=== PATIENT | male | born 1970 | race Two or more races ===

== ENCOUNTER → 2025-08-04 | Outpatient (CLI) | payer MEDICAID, SELFPAY ==
--- NOTE | 2025-08-04 09:00 | XR_ITS ---
EXAM: Single contrast esophagram. INDICATION: Dysphagia. DATE: 08/04/2025, 9:08 a.m. Fluoroscopy time: 2.4 minutes Dose: 131.83 mGy PROCEDURE: Single contrast barium esophagram performed in multiple positions and multiple projections. Liquid barium contrast passes normally from the oropharynx through the esophagus into the stomach without evidence of delay. No evidence of esophageal mass, stricture, filling defect or diverticulum. No evidence of hiatal hernia or gastroesophageal reflux. IMPRESSION: Negative single contrast barium esophagram.
== END | disposition home or self-care (01) ==
PROVIDERS: PCP Family Medicine; Referring Provider Family Medicine; Visit Provider Family Medicine
DX: K21.9 Gastro-esophageal reflux disease without esophagitis (principal)
CPT/HCPCS: 74220; A4649

== ENCOUNTER 2025-08-10 06:35 | Day surgery (SDC) | payer MEDICAID, SELFPAY ==
[2025-08-09 10:56] VITALS: BMI 26.6
[2025-08-10] VITALS (9 sets, daily range): BP systolic 134–151; BP diastolic 76–88; PULSE 60–85; RESP 12–20; TEMP 36.4–36.8; O2SAT 95–100; BMI 26.3
[2025-08-10] MEDS: SODIUM CHLORIDE 0.9% 500 ML 500 ML 100 ML IV (07:41)
[2025-08-10] MEDS: MIDAZOLAM INJ 1 MG/ML VIAL 2 ML (ASD USE ONLY) 2 MG IVP (07:45)
[2025-08-10] MEDS: fentaNYL CIT INJ 50 mCg/ML AMP 2ML (ASD USE ONLY) IVP (07:45)
== END 2025-08-10 08:34 | disposition home or self-care (01) ==
PROVIDERS: PCP Family Medicine; Referring Provider Surgery; Visit Provider Surgery
PROC: 0DBE8ZX Excision of Large Intestine, Via Natural or Artificial Opening Endoscopic, Diagnostic (ICD-10-PCS; CPT 45380; principal; 2025-08-10 07:30)
DX: K64.1 Second degree hemorrhoids (principal); R10.32 Left lower quadrant pain; K40.90 Unilateral inguinal hernia, without obstruction or gangrene, not specified as recurrent
CPT/HCPCS: 45378; A4217; A4649; J1200; J2250; J3010; J7999

== ENCOUNTER 2025-09-21 06:25 | Day surgery (SDC) | payer MEDICAID, SELFPAY ==
--- NOTE | 2025-09-19 07:00 | EKG_ITS ---
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
[2025-09-19 07:36] VITALS: BMI 27.0
[2025-09-19 08:54] LABS: Basophils # (Auto) 0.0 Thou/mm3 (0.0-0.2); Basophils % (Auto) 1 % (0-2.5); Eosinophils # (Auto) 0.2 Thou/mm3 (0.0-0.5); Eosinophils % (Auto) 4 % (0-10); Hematocrit 44.6 % (41.0-53.0); Hemoglobin 15.5 g/dL (13.5-16.0); Immature Granulocytes Auto 0.01 Thou/mm3 (0.00-0.00); Lymphocytes # (Auto) 2.5 Thou/mm3 (1.0-4.8); Lymphocytes % (Auto) 39 % (10-50); Mean Corpuscular HGB Conc 34.8 g/dl (31.0-37.0); Mean Corpuscular Hemoglobin 31.5 pg (25.0-35.0); Mean Corpuscular Volume 91 fL (80-100); Monocytes # (Auto) 0.6 Thou/mm3 (0.0-0.8); Monocytes % (Auto) 9 % (0-12); Neutrophils # (Auto) 3.0 Thou/mm3 (1.8-7.7); Neutrophils % (Auto) 48 % (37-80); Nucleated Red Blood Cell # 0.00 Thou/mm3 (0.00-0.00); Nucleated Red Blood Cell % 0 /100 WBC (0); Platelet Count 231 Thou/mm3 (140-440); RDW Standard Deviation 40.2 fL (35.1-43.9); Red Blood Count 4.92 Miln/mm3 (4.50-5.90); White Blood Count 6.3 Thou/mm3 (3.8-10.6)
[2025-09-19 08:59] LABS: Anion Gap 8 (7-16); BUN/Creatinine Ratio 11 Ratio (12-20); Blood Urea Nitrogen 10 mg/dL (9-23); Calcium 9.3 mg/dL (8.3-10.6); Carbon Dioxide 29.9 mMol/L (20.0-31.0); Chloride 106 mMol/L (98-107); Creatinine (Component) 0.9 mg/dL (0.6-1.3); Estimated Creatinine Clearance 88.7 mL/min (>60); Glucose 93 mg/dL (74-106); Osmolality,Calculated 285 (275-295); Potassium 4.1 mMol/L (3.4-5.1); Sodium 144 mMol/L (136-145); eGFR > 60 See Note
[2025-09-21] VITALS (8 sets, daily range): BP systolic 114–138; BP diastolic 78–84; PULSE 62–77; RESP 12–20; TEMP 36.4–36.9; O2SAT 97–100; BMI 26.6
--- NOTE | 2025-09-21 09:44 | PD.SUROPNT ---
Date of Procedure 09/21/25 Pre Op Diagnosis Left inguinal hernia Post Op Diagnosis Direct left inguinal hernia Procedure Left inguinal hernia repair with mesh Findings Patient was found to have direct left inguinal hernia Procedure Description Patient brought into the operating room in supine position. After administration of general endotracheal anesthesia, patient's left groin was shaved, prepped and draped in standard surgical manner. The left inguinal crease was anesthetized with half percent Marcaine. An approximately 5 cm incision was made and dissection was carried to subcutaneous tissue. The Sonny's fascia was divided and the external oblique aponeurosis was opened towards the external ring. The hernia sac and the spermatic cord structures were from the posterior aspect of the external oblique aponeurosis at the level of pubic tubercle. The hernia sac was then meticulously dissected off the spermatic cord structures at the level of internal ring. Patient was noted to have direct left inguinal hernia defect. The defect was closed with interrupted [id number] sutures using 0 Vicryl. The floor of inguinal canal was then reconstructed with ultra Pro proceed mesh. The mesh was secured with running 2-0 Prolene suture. The mesh secured medially to the pubic tubercle, superiorly into the conjoin tendon, inferiorly and to the shelving edge of inguinal ligament, the mesh was placed around the cord structures and tacked under the external oblique aponeurosis laterally. The area was copiously and thoroughly washed and irrigated, all the fluids were suctioned and the suction fluid returned clear. Hemostasis was adequate and satisfactory. External oblique aponeurosis was closed with running 2-0 Vicryl suture, and Sonny's fascia was closed with interrupted suture using 3-0 Vicryl. The incision was closed with 4-0 Monocryl in subcutaneous fashion. Instruments, needles and sponge counts were reported to be correct ?2. Patient tolerated the procedure well. He was extubated, breathing spontaneously and without difficulty and was transferred to postanesthesia care in stable condition. Anesthesia GETA and local Pathology / specimen None Estimated Blood Loss 10 Condition Stable Disposition PACU Surgeon Lucy Wakefield MD Surgical Staff Operation Date: 09/21/25 08:30 Case Staff MACHINE OPERATOR ASSISTANT: Renetta Isidro RN First Assistant: Sabine Ortiz
--- NOTE | 2025-09-21 09:45 | SUR.PHASEI ---
0945: Pt. wakes to name then drifts back to sleep, vitals stable, breathing unlabored, no signs of distress, dressing to left lower ABD CDI, no active bleed noted, report received from Stewart HILL and Renetta FAULKNER.
[2025-09-21] MEDS: KETOROLAC INJ 30 MG/ML VIAL IVP (10:05)
[2025-09-21] MEDS: fentaNYL CIT INJ 50 mCg/ML AMP 2ML IVP (10:25)
--- NOTE | 2025-09-21 10:55 | SUR.PHASEII ---
1055: Pt. AAOx4, vitals stable, breathing unlabored, no complaint of pain or nausea, dressing to left lower ABD CDI, no active bleed noted, pt. tolerated sips of water well, pt. ambulated to wheelchair with steady gait and no assist, no complications. Gave discharge instructions to the pt. and his ride using site interpreter, both verbalized understanding and had no further questions. Pt. left with all personal belongings.
== END 2025-09-21 10:55 | disposition home or self-care (01) ==
PROVIDERS: PCP Family Medicine; Referring Provider Surgery; Visit Provider Surgery
PROC: (CPT 49505; principal; 2025-09-21 08:30)
DX: K40.90 Unilateral inguinal hernia, without obstruction or gangrene, not specified as recurrent (principal); Z01.810 Encounter for preprocedural cardiovascular examination
CPT/HCPCS: 49505; 36415; 80048; 85025; 93005; A4217; A4649; C1781; J0131; J1100; J1885; J2405; J2704; J3010; J3490